=== PATIENT | female | born 2000 | race Caucasian/White ===

== ENCOUNTER 2022-04-07 09:25 | Emergency (ER) | payer OTHER, SELFPAY ==
[2022-04-07 09:28] VITALS: BP 134/74; PULSE 99; RESP 18; TEMP 37.8; O2SAT 99
[2022-04-07 10:31] LABS: Influenza A QL RT-PCR Positive (Negative); Influenza B QL RT-PCR Negative (Negative); SARS-CoV-2 RNA PCR Negative
--- NOTE | 2022-04-07 12:39 | ED.URI ---
HPI - URI/Sore Throat General Chief Complaint: Upper Respiratory Infection Stated Complaint: throwing up, chills, coughing, flu exposure Time Seen by Provider: 04/07/22 12:39 Related Data Home Medications Medication Instructions Recorded Confirmed No Home Medications 04/07/22 Allergies Allergy/AdvReac Type Severity Reaction Status Date / Time No Known Allergies Allergy Verified 04/07/22 09:30 [facility] Social History Social History Smoking status: Never smoker Alcohol intake: never Course Vital Signs Vital signs: Vital Signs Temperature 37.8 C H 04/07/22 09:28 Pulse Rate 99 04/07/22 09:28 Respiratory Rate 18 04/07/22 09:28 Blood Pressure 134/74 04/07/22 09:28 Pulse Oximetry 99 04/07/22 09:28 Oxygen Delivery Room Air 04/07/22 09:28 Temperature 37.8 C H 04/07/22 09:28 Pulse Rate 99 04/07/22 09:28 Respiratory Rate 18 04/07/22 09:28 Blood Pressure 134/74 04/07/22 09:28 Pulse Oximetry 99 04/07/22 09:28 Oxygen Delivery Room Air 04/07/22 09:28 MDM - URI/Sore Throat Lab Data Labs: Lab Results 04/07/22 Range/Units 09:31 Influenza A (RT-PCR) Positive (Negative) Influenza B (RT-PCR) Negative (Negative) SARS-CoV-2 RNA (RT-PCR) Negative Discharge Plan Discharge Prescriptions: No Action No Home Medications Follow-up/Referrals: UNKNOWN,DOCTOR [Primary Care Provider] -
== END 2022-04-07 12:55 | disposition left against medical advice (07) ==
LOC: ANHED 12:51
PROVIDERS: Emergency Provider Family Medicine
DX: R68.89 Other general symptoms and signs (principal); Z20.822 Contact with and (suspected) exposure to COVID-19
CPT/HCPCS: 87636; 99199